=== PATIENT | female | born 1990 | race Caucasian/White ===

== ENCOUNTER 2017-07-10 16:25 | Emergency (ER) | payer OTHER ==
[2017-07-10 16:50] VITALS: BP 113/54
--- NOTE | 2017-07-10 17:07 | ER Document Report ---
ED General - General Chief Complaint: Sore Throat Stated Complaint: SORE THROAT Time Seen by Provider: 07/10/17 17:01 Mode of Arrival: Ambulatory Information source: Patient Notes: 27-year-old female presents with complaints of a sore throat URI-like symptoms for 2 weeks duration. Patient notes her symptoms are getting better but she is in fact here to be seen since that she is more concerned about her daughter who has had URI symptoms for 2 days and is having now difficulty breathing. Denies any fevers or chills denies any nausea vomiting or diarrhea TRAVEL OUTSIDE OF THE [place] IN LAST 30 DAYS: No - HPI Onset: Other Onset/Duration: Better Quality of pain: Sharp Severity: Mild Pain Level: 1 Associated symptoms: Nonproductive cough, Sore throat Exacerbated by: Denies Relieved by: Denies Similar symptoms previously: No Recently seen / treated by doctor: No - Related Data Allergies/Adverse Reactions: No Known Allergies Allergy (Unverified 07/10/17 16:34) Past Medical History - Social History Smoking Status: Never Smoker Cigarette use (# per day): No Chew tobacco use (# tins/day): No Smoking Education Provided: No Family History: Reviewed & Not Pertinent Review of Systems - Review of Systems Notes: REVIEW OF SYSTEMS: CONSTITUTIONAL : Denies fever, chills, or sweats. Denies recent illness. EENT: Admits to sore throat CARDIOVASCULAR: Denies chest pain. Denies palpitations or racing or irregular heart beat. Denies ankle edema. RESPIRATORY: Admits to cough GASTROINTESTINAL: Denies abdominal pain or distention. Denies nausea, vomiting , or diarrhea. Denies blood in vomitus, stools, or per rectum. Denies black, tarry stools. Denies constipation. GENITOURINARY: Denies difficulty urinating, painful urination, burning, frequency, blood in urine, or discharge. FEMALE GENITOURINARY: Denies vaginal bleeding, heavy or abnormal periods, irregular periods. Denies vaginal discharge or odor. MUSCULOSKELETAL: Denies back or neck pain or stiffness. Denies joint pain or swelling. SKIN: Denies rash, lesions or sores. HEMATOLOGIC : Denies easy bruising or bleeding. LYMPHATIC: Denies swollen, enlarged glands. NEUROLOGICAL: Denies confusion or altered mental status. Denies passing out or loss of consciousness. Denies dizziness or lightheadedness. Denies headache. Denies weakness or paralysis or loss of use of either side. Denies problems with gait or speech. Denies sensory loss, numbness, or tingling. Denies seizures. PSYCHIATRIC: Denies anxiety or stress. Denies depression, suicidal ideation, or homicidal ideation. ALL OTHER SYSTEMS REVIEWED AND NEGATIVE. PHYSICAL EXAMINATION: GENERAL: Well-appearing, well-nourished and in no acute distress. HEAD: Atraumatic, normocephalic. EYES: Pupils equal round and reactive to light, extraocular movements intact, conjunctiva are normal. ENT: Mild tonsillar erythema airway patent uvula midline no exudate NECK: Normal range of motion, supple without lymphadenopathy LUNGS: Breath sounds clear to auscultation bilaterally and equal. No wheezes rales or rhonchi. HEART: Regular rate and rhythm without murmurs ABDOMEN: Soft, nontender, nondistended abdomen. No guarding, no rebound. No masses appreciated. Female : deferred Musculoskeletal: Normal range of motion, no pitting or edema. No cyanosis. NEUROLOGICAL: Cranial nerves grossly intact. Normal speech, normal gait. Normal sensory, motor exams PSYCH: Normal mood, normal affect. SKIN: Warm, Dry, normal turgor, no rashes or lesions noted. Dictation was performed using [employer] voice recognition software Physical Exam - Vital signs Vitals: Temp Pulse Resp BP Pulse Ox 98.0 F 92 16 113/54 L 99 07/10/17 16:49 07/10/17 16:49 07/10/17 16:49 07/10/17 16:49 07/10/17 16:49 Course - Re-evaluation Re-evalutation: 07/10/17 20:53 Patient's presentation is most consistent with a viral syndrome, I agree with the patient that she is not of concern at this time and that her daughter who is having retractions and is only a few months old is a bigger concern patient herself is discharge and is stable does not require any further testing her daughter will be made a emergent patient and will be given further intervention immediately, patient is happy with this plan After performing a Medical Screening Examination, I estimate there is LOW risk for ACUTE CORONARY SYNDROME, PULMONARY EMBOLI, RESPIRATORY FAILURE, SEPSIS OR MENINGITIS, thus I consider the discharge disposition reasonable. I have reevaluated this patient multiple times and no significant life threatening changes are noted. The patient and I have discussed the diagnosis and risks, and we agree with discharging home with close follow-up. We also discussed returning to the Emergency Department immediately if new or worsening symptoms occur. We have discussed the symptoms which are most concerning (e.g., changing or worsening pain, trouble swallowing or breathing, neck stiffness, fever) that necessitate immediate return. - Vital Signs Vital signs: Temp Pulse Resp BP Pulse Ox 98.0 F 92 18 113/54 L 99 07/10/17 16:49 07/10/17 16:49 07/10/17 17:07 07/10/17 16:49 07/10/17 16:49 Discharge - Discharge Clinical Impression: Viral URI, Viral pharyngitis Condition: Stable Disposition: HOME, SELF-CARE Instructions: Upper Respiratory Illness ([facility]) Additional Instructions: Follow up with your physician tomorrow for further care or return to the ED IMMEDIATELY if symptoms worsen or new concerns occur. If you cannot afford to follow up with your primary care physician a list of low cost clinics have been provided at the end of your discharge papers as well.
== END 2017-07-10 17:24 | disposition home or self-care (01) ==
LOC: ER 16:25
DX: J06.9 Acute upper respiratory infection, unspecified (principal); J02.9 Acute pharyngitis, unspecified; B97.89 Other viral agents as the cause of diseases classified elsewhere; R06.9 Unspecified abnormalities of breathing; R05 Cough
CPT/HCPCS: 99282

== ENCOUNTER 2017-10-15 03:38 | Emergency (ER) | payer OTHER ==
[2017-10-15] MEDS ORDERED: CLINDAMYCIN HCL 150 MG CAPSULE PO ONE (04:09)
[2017-10-15] MEDS ORDERED: ONDANSETRON 4 MG TAB.RAPDIS PO ONE (04:09)
[2017-10-15] MEDS ORDERED: LIDOCAINE 1% INJ-PF (10 MG/ML) 30 ML SDV INJ ONE (04:24)
[2017-10-15] MEDS ORDERED: ONDANSETRON ODT 4 MG TAB (6 TAB/ER DISP) PO PRN (04:47)
--- NOTE | 2017-10-15 04:47 | ER Document Report ---
ED General - General Chief Complaint: Abscess Stated Complaint: NAUSEA, VOMITING, POST OP PAIN Time Seen by Provider: 10/15/17 03:52 Notes: Patient is a 27-year-old female who presents with complaints of what may be an abscess over her old scar. Her was performed last fall at the [facility] in [facility]. She says it has been there for approximately 2 weeks. She says because of the pain she sometimes has vomiting. No fevers. No other complaints this time. No previous history of infections over this area. TRAVEL OUTSIDE OF THE [place] IN LAST 30 DAYS: No - Related Data Allergies/Adverse Reactions: No Known Allergies Allergy (Unverified 07/10/17 16:34) Past Medical History - Social History Smoking Status: Unknown if Ever Smoked Frequency of alcohol use: None Drug Abuse: None Family History: Reviewed & Not Pertinent Patient has suicidal ideation: No Patient has homicidal ideation: No Renal/ Medical History: Denies: Hx Peritoneal Dialysis Review of Systems - Review of Systems Notes: My Normal Review Basic REVIEW OF SYSTEMS: CONSTITUTIONAL : Denies fever, chills, or sweats. Denies recent illness. GASTROINTESTINAL: Pain over section scar. GENITOURINARY: Denies difficulty urinating, painful urination, burning, frequency, or blood in urine. FEMALE GENITOURINARY: Denies vaginal bleeding, abnormal or irregular periods. NEUROLOGICAL: Denies altered mental status or loss of consciousness. Denies headache. Denies weakness or paralysis or loss of use of either side. Denies problems with gait or speech. Denies sensory or motor loss. ALL OTHER SYSTEMS REVIEWED AND NEGATIVE. Physical Exam - Vital signs Vitals: Temp Pulse Resp BP Pulse Ox 97.9 F 92 20 113/69 100 10/15/17 03:42 10/15/17 03:42 10/15/17 03:42 10/15/17 03:42 10/15/17 03:42 - Notes Notes: General Appearance: Well nourished, alert, cooperative, no acute distress, mild obvious discomfort. Well appearing. Vitals: reviewed, See vital signs table. Eyes: PERRL, EOMI, Conjuctiva clear Abdomen: Normal BS, soft, No rigidity, No abdominal tenderness, No guarding, no rebound, no abdominal masses, no organomegaly. Patient does have a approximately 3 cm area of fluctuance with local erythema over her scar. Bedside ultrasound shows that this is a fluid collection consistent with that of an abscess. Skin: warm, dry, appropriate color, no rash Neuro: speech clear, oriented x 3, normal affect, responds appropriately to questions. Course - Re-evaluation Re-evalutation: 10/15/17 05:39 Abscess was incised and drained. I then placed a Xeroform gauze over it with sterile dressing. Patient encouraged to change her dressing in 24 hours or earlier if the dressings starts to soak thru the dressing. I will place her on clindamycin. Strongly encouraged her return to ER if she has worsening spreading redness, fevers, or recurrence of fluctuance or swelling. Patient agrees with plan will be discharged home. Dictation of this chart was performed using voice recognition software; therefore, there may be some unintended grammatical errors. - Vital Signs Vital signs: Temp Pulse Resp BP Pulse Ox 98.0 F 78 17 100/62 98 10/15/17 04:56 10/15/17 04:56 10/15/17 04:56 10/15/17 04:56 10/15/17 04:56 Procedures - Incision and Drainage Lower Abdomen Type: Simple Anesthetic type: 1% Lidocaine mL's of anesthetic: 1 Blade size: 11 I&D procedure: Betadine prep applied, Sterile dressing applied Incision Method: Incision made by scalpel Amount/type of drainage: 3 mL's of purulent drainage. Discharge - Discharge Clinical Impression: Abscess Condition: Good Disposition: HOME, SELF-CARE Additional Instructions: ABSCESS: You have an abscess (boil). This a pus-forming infection, usually due to staph. Some boils may be left to drain on their own, but most require lancing. From the time the tender lump first appears, it may be three or four days before the abscess is ready to edelmira. Local heat and rest help at this stage of treatment. An antibiotic may prevent spread of the infection. Once the abscess is opened, packing may be placed into it. This is done so pus is not sealed inside by premature closure of the cavity. The packing will be removed at your follow-up visit or you may be advised to remove it yourself at home. Sometimes this packing must be replaced a few times during healing. The wound will heal with surprisingly little scar. Depending on the size and location of an abscess, healing can take one to four weeks. You may shower and wash the area around the incision site two or three times a day. Antibiotics may be prescribed, but are usually not necessary after an abscess has been drained. If you develop fever, chills, worsening pain, or increasing swelling in the area, call the doctor or return immediately. POST INCISION AND DRAINAGE: You have had an incision made to allow drainage of an abscess. The incision must remain open so that pus and debris can drain from the wound. If the abscess cavity is large, packing is placed. This keeps the tissues from collapsing and trapping pus inside, while the body shrinks the cavity. The packing may need to be replaced every day or two. The physician will instruct you on the packing. Keep a bulky dressing over the area. Replace it if it becomes saturated with blood or pus. Do not disturb the packing (if present). You may shower and cleanse the area with gentle soap and warm water two or three times a day. Local warmth may be soothing, and may promote faster healing. Return if you develop high fever or chills, or if you note spreading redness, increasing swelling, or increasing tenderness. FOLLOW-UP CARE: Most simple abscesses will not require a follow up visit. If you had packing placed in the abscess, remove it as instructed by the physician. If you have been referred to a physician for follow-up care, call the physicians office for an appointment as you were instructed or within the next two days. If you experience worsening or a significant change in your symptoms, return to the Emergency Department at any time for re-evaluation. Please change the dressing every 24 hours after washing with soap and water. Change the dressing more frequently if the dressing becomes saturated. Return to the ER immediately if you have fevers, spreading redness, or increasing swelling. Prescriptions: Clindamycin HCl 300 mg PO ASDIR #56 capsule Referrals: JAY BO JR, MD [Primary Care Provider] - Follow up in 3-5 days
[2017-10-15 04:58] VITALS: BP 100/62
== END 2017-10-15 04:58 | disposition home or self-care (01) ==
LOC: ER 03:38
PROC: 0H97XZZ Drainage of Abdomen Skin, External Approach (ICD-10-PCS; principal; 2017-10-15)
DX: L02.211 Cutaneous abscess of abdominal wall (principal); Z98.890 Other specified postprocedural states
CPT/HCPCS: 99283; 10060; S0119

== ENCOUNTER 2018-05-14 23:37 | Emergency (ER) | payer OTHER ==
[2018-05-15 02:57] LABS: APPEARANCE,URINE SLIGHTLY-CLOUDY; BILIRUBIN,URINE NEGATIVE (NEGATIVE); COLOR,URINE YELLOW; GLUCOSE, URINE NEGATIVE (NEGATIVE); KETONES,URINE 20 mg/dL (NEGATIVE); LEUKOCYTE ESTERASE,URINE NEGATIVE (NEGATIVE); NITRITE,URINE NEGATIVE (NEGATIVE); PROTEIN,URINE NEGATIVE (NEGATIVE); URINE SPECIFIC GRAVITY 1.008; UROBILINOGEN,URINE NEGATIVE mg/dL (<2.0)
--- NOTE | 2018-05-15 04:12 | ER Document Report ---
ED GI/ - General Chief Complaint: Abdominal Pain Stated Complaint: ABDOMINAL PAIN,VOMITING Time Seen by Provider: 05/15/18 03:46 Primary Care Provider: SUZIE SORIA MD [Primary Care Provider] - Follow up as needed Notes: Patient is an otherwise healthy 28-year-old female who presents with left lower quadrant pain with nausea and vomiting. She reports that she has a history of ovarian cysts and states that this pain felt similar. Patient denies any fevers or chills. Patient denies any diarrhea. She reports last menstrual period was on April 27 and was normal. She reports last bowel movement was yesterday. TRAVEL OUTSIDE OF THE [place] IN LAST 30 DAYS: No - Related Data Allergies/Adverse Reactions: No Known Allergies Allergy (Unverified 07/10/17 16:34) Past Medical History - General Information source: Patient - Social History Smoking Status: Current Every Day Smoker Family History: Reviewed & Not Pertinent Patient has suicidal ideation: No Patient has homicidal ideation: No Renal/ Medical History: Reports: Hx Ovarian Cysts. Denies: Hx Peritoneal Dialysis Past Surgical History: Reports: Hx Section - x1 Review of Systems - Review of Systems Constitutional: No symptoms reported EENT: No symptoms reported Cardiovascular: No symptoms reported Respiratory: No symptoms reported Gastrointestinal: Abdominal pain - Left lower quadrant now resolved, Nausea, Vomiting Genitourinary: No symptoms reported Female Genitourinary: No symptoms reported Musculoskeletal: No symptoms reported Skin: No symptoms reported Hematologic/Lymphatic: No symptoms reported Neurological/Psychological: No symptoms reported Physical Exam - Vital signs Vitals: Temp Pulse Resp BP Pulse Ox 98.4 F 94 18 114/71 99 05/15/18 00:09 05/15/18 00:09 05/15/18 00:09 05/15/18 00:09 05/15/18 00:09 - Notes Notes: PHYSICAL EXAMINATION: GENERAL: Well-appearing, well-nourished and in no acute distress. HEAD: Atraumatic, normocephalic. EYES: Pupils equal round and reactive to light, extraocular movements intact, conjunctiva are normal. ENT: Nares patent, oropharynx clear without exudates. Moist mucous membranes. NECK: Normal range of motion, supple without lymphadenopathy LUNGS: Breath sounds clear to auscultation bilaterally and equal. No wheezes r ales or rhonchi. HEART: Regular rate and rhythm without murmurs ABDOMEN: Soft, nontender, nondistended abdomen. No guarding, no rebound. No masses appreciated. Female : No CVA tenderness. Musculoskeletal: Normal range of motion, no pitting or edema. No cyanosis. NEUROLOGICAL: Cranial nerves grossly intact. Normal speech, normal gait. Normal sensory, motor exams PSYCH: Normal mood, normal affect. SKIN: Warm, Dry, normal turgor, no rashes or lesions noted. Course - Re-evaluation Re-evalutation: Small amount of hematuria noted in urinalysis, otherwise appears to be uninfected. At the time of my initial evaluation, patient is pain-free and is requesting to be discharged home. Her physical examination is unremarkable and her abdomen is soft, nontender nondistended. We discussed multiple different causes of left lower quadrant pain to include ovarian cysts which she has had in the past as well as constipation. Patient declines any further workup at this time and states she is feeling much better. I did offer the patient a prescription for Zofran which she also declined stating that she has plenty of Zofran at home. Patient was given ED return precautions and she verbalizes understanding of same. - Vital Signs Vital signs: Temp Pulse Resp BP Pulse Ox 97.8 F 85 18 110/72 99 05/15/18 04:22 05/15/18 04:22 05/15/18 04:22 05/15/18 04:22 05/15/18 04:22 - Laboratory Laboratory results interpreted by me: 05/15/18 02:36 Urine Ketones 20 H Urine Blood SMALL H Discharge - Discharge Clinical Impression: Abdominal pain Qualifiers: Abdominal location: left lower quadrant Qualified Code(s): R10.32 - Left lower quadrant pain Nausea and vomiting Qualifiers: Vomiting type: unspecified Vomiting Intractability: non-intractable Qualified Code(s): R11.2 - Nausea with vomiting, unspecified Condition: Stable Disposition: HOME, SELF-CARE Additional Instructions: Your urinalysis done today was normal and does not show any signs of infection. You have opted to not stay for any further workup to include blood work or ultrasound. You declined the need for any Zofran. Please return to the emergency department should you experience abdominal pain again that is accompanied by persistent vomiting, fever or any other symptom that is concerning to you. We will be happy to reevaluate you at any time. Forms: Return to Work Referrals: SUZIE SORIA MD [Primary Care Provider] - Follow up as needed
[2018-05-15 04:23] VITALS: BP 110/72
== END 2018-05-15 04:20 | disposition home or self-care (01) ==
LOC: ER 23:37
DX: R10.32 Left lower quadrant pain (principal); R11.2 Nausea with vomiting, unspecified; F17.200 Nicotine dependence, unspecified, uncomplicated
CPT/HCPCS: 81001; 99284

== ENCOUNTER 2018-10-18 19:35 | Emergency (ER) | payer OTHER ==
--- NOTE | 2018-10-18 21:58 | ER Document Report ---
ED Medical Screen (RME) - General Chief Complaint: Dog Bite Stated Complaint: DOG BITE RIGHT HAND Time Seen by Provider: 10/18/18 21:52 Primary Care Provider: SUZIE SORIA MD [Primary Care Provider] - Follow up as needed TRAVEL OUTSIDE OF THE [place] IN LAST 30 DAYS: No - HPI Notes: 10/18/18 21:56 28-year-old female to the emergency department with complaints of a dog bite to her right hand that occurred just prior to arrival. States she is walking her dog when the dog got in a fight with another dog. She tried to break up the fight in her hand was bitten. Believes that her last tetanus was in 2016. She states that the belt back operator of the other dog did not know anything about the dogs shot records. It is right-handed. There is a laceration to the back of the right hand which will require repair. I have greeted and performed a rapid initial assessment of this patient. A comprehensive ED assessment and evaluation of the patient, analysis of test results and completion of medical decision making process will be conducted by an additional ED providers. Dictation of this chart was performed using voice recognition software; therefore, there may be some unintended grammatical errors. - Related Data Allergies/Adverse Reactions: No Known Allergies Allergy (Verified 10/18/18 19:43) Past Medical History Renal/ Medical History: Reports: Hx Ovarian Cysts. Denies: Hx Peritoneal Dialysis Past Surgical History: Reports: Hx Section - x1 Physical Exam - Vital signs Vitals: Temp Pulse Resp BP Pulse Ox 98.0 F 93 18 128/75 H 100 10/18/18 19:45 10/18/18 19:45 10/18/18 19:45 10/18/18 19:45 10/18/18 19:45 Course - Vital Signs Vital signs: Temp Pulse Resp BP Pulse Ox 98.0 F 93 18 128/75 H 100 10/18/18 19:45 10/18/18 19:45 10/18/18 19:45 10/18/18 19:45 10/18/18 19:45 Doctor's Discharge - Discharge Referrals: SUZIE SORIA MD [Primary Care Provider] - Follow up as needed
[2018-10-18] MEDS ORDERED: IBUPROFEN 600 MG TABLET PO ONE ×2 (21:59→23:39)
--- NOTE | 2018-10-18 22:24 | RADIOLOGY REPORT (SQ) ---
EXAM DESCRIPTION: XR HAND 3 OR MORE VIEWS October 18, 2018 at 9:50 PM local time CLINICAL HISTORY: dog bite COMPARISON: None FINDINGS: Three x-ray views of the right hand were submitted. There is no acute fracture or dislocation. Bone mineralization is within normal limits. Linear lucency within the soft tissues medial to the fifth metacarpal phalangeal joint compatible with the recent injury. There is no radiopaque foreign body material. IMPRESSION: No acute fracture or dislocation. Linear lucency within the soft tissues medial to the fifth metacarpal phalangeal joint compatible with the recent injury/air.
[2018-10-18] MEDS ORDERED: AMOXICILLIN TR/POT CLAVULANATE 500-125 MG TAB PO ONE (23:38)
[2018-10-18] MEDS ORDERED: RABIES VACCINE (PCEC)/PF 2.5 UNIT/1 ML KIT IM ONE (23:54)
[2018-10-18] MEDS ORDERED: BACITRACIN ZINC OINTMENT 15 GM TP ONE (23:54)
[2018-10-18] MEDS ORDERED: RABIES IMMUNE GLOBULIN INJ/PF 300 UNIT/2 ML SDV IM ONE (23:57)
--- NOTE | 2018-10-19 00:19 | ER Document Report ---
ED General - General Chief Complaint: Dog Bite Stated Complaint: DOG BITE RIGHT HAND Time Seen by Provider: 10/18/18 21:52 Primary Care Provider: SUZIE SORIA MD [NO LOCAL MD] - Follow up as needed Mode of Arrival: Ambulatory Information source: Patient TRAVEL OUTSIDE OF THE [place] IN LAST 30 DAYS: No - HPI Notes: Patient is a 28-year-old female presents to the emergency department with report that she was trying to break up a fight between her dog and another dog that was attacking her dog and in the process sustained puncture wounds to the right hand. The patient denies any other injury. She reports no numbness, paresthesia, fever, chills, difficulty breathing. She states she has never seen the other dog previously, and she does not know where the dog may have come from. The patient denies any other injury. She states her tetanus is up-to-date from 2016. Past medical history ovarian cysts. - Related Data Allergies/Adverse Reactions: No Known Allergies Allergy (Verified 10/18/18 19:43) Past Medical History - General Information source: Patient - Social History Smoking Status: Never Smoker Chew tobacco use (# tins/day): No Frequency of alcohol use: None Drug Abuse: None Lives with: Alone Family History: Reviewed & Not Pertinent Patient has suicidal ideation: No Patient has homicidal ideation: No Renal/ Medical History: Reports: Hx Ovarian Cysts. Denies: Hx Peritoneal Dialysis Past Surgical History: Reports: Hx Section - x1 Review of Systems - Review of Systems -: Yes All other systems reviewed and negative Physical Exam - Vital signs Vitals: Temp Pulse Resp BP Pulse Ox 98.0 F 93 18 128/75 H 100 10/18/18 19:45 10/18/18 19:45 10/18/18 19:45 10/18/18 19:45 10/18/18 19:45 - Notes Notes: In general -no obvious distress. Interactive and alert. HEENT atraumatic normocephalic. Neck supple nontender. Examination right upper extremity shows puncture wound 3 mm to the dorsal aspect of the proximal fifth finger and another 7 mm dorsal puncture wound in the webspace between the fourth and fifth fingers. No bony deformity or crepitance. No exposed tendon or nerve or bone or muscle. Patient has good range of motion in flexion and extension distal to the wound. There is no proximal erythema or adenopathy. Course - Re-evaluation Re-evalutation: 10/19/18 00:14 Wound area was cleaned and antibiotic ointment was applied. The wound will not be sutured due to risk of abscess formation with animal bite. There is no evidence for tendon injury or nerve injury with good distal sensation and capillary refill and range of motion. Patient was given rabies vaccination with rabies immunoglobulin. - Vital Signs Vital signs: Temp Pulse Resp BP Pulse Ox 98.0 F 93 18 128/75 H 100 10/18/18 19:45 10/18/18 19:45 10/18/18 19:45 10/18/18 19:45 10/18/18 19:45 Discharge - Discharge Clinical Impression: Dog bite Qualifiers: Encounter type: initial encounter Qualified Code(s): W54.0XXA - Bitten by dog, initial encounter Condition: Stable Disposition: HOME, SELF-CARE Instructions: Animal Bites ([facility]) Additional Instructions: Follow-up with animal control related to the dog bite. Animal control will help find the dog that bit you. If animal control puts the dog into custody, then you may not need the remainder of the vaccination schedule. Keep the wound clean and dry. Apply antibiotic ointment to the wound. Return to the emergency department in case of fever, red streaks or severe swelling. Return to the emergency department for repeat rabies vaccination in 3 days, 7 days, 14 days, and 28 days. Prescriptions: Ibuprofen [Motrin 600 mg Tablet] 600 mg PO Q8HP PRN #30 tablet PRN Reason: Amox Tr/Potassium Clavulanate [Augmentin 875-125 Tablet] 1 tab PO BID 10 Days tablet Forms: Return to Work Referrals: SUZIE SORIA MD [NO LOCAL MD] - Follow up as needed
[2018-10-19] MEDS ORDERED: RABIES VACCINE (PCEC)/PF 2.5 UNIT/1 ML KIT IM ONE (01:00)
[2018-10-19 02:07] VITALS: BP 122/78
== END 2018-10-19 01:40 | disposition home or self-care (01) ==
LOC: ER 19:35
DX: S61.451A Open bite of right hand, initial encounter (principal); S61.256A Open bite of right little finger without damage to nail, initial encounter; W54.0XXA Bitten by dog, initial encounter; Y93.89 Activity, other specified; Z23 Encounter for immunization; Z20.3 Contact with and (suspected) exposure to rabies
CPT/HCPCS: 90376; 90471; 90675; 96372; 99283; J3490

== ENCOUNTER → 2019-10-06 | Outpatient (CLI) | payer MEDICAID ==
--- NOTE | 2019-10-06 12:45 | RADIOLOGY REPORT (SQ) ---
EXAM DESCRIPTION: C SP 4 OR 5 VIEWS IMAGES COMPLETED DATE/TIME: 10/06/2019 10:26 am REASON FOR STUDY: CERVICALGIA M54.9 DORSALGIA, UNSPECIFIED M54.2 CERVICALGIA COMPARISON: None. NUMBER OF VIEWS: Five views. TECHNIQUE: AP, lateral, obliques and odontoid radiographic images acquired of the cervical spine. LIMITATIONS: None. FINDINGS: MINERALIZATION: Normal. ALIGNMENT: Anatomic. VERTEBRAE: Vertebral bodies of normal height. DISCS: No significant osteophytes or sclerosis. Disc height maintained. FORAMINA: No osteophytes or foraminal narrowing. LATERAL AND POSTERIOR ELEMENTS: Facets, lateral masses and spinous processes without significant find ings. HARDWARE: None in the spine. SOFT TISSUES: No masses or calcifications. Lung apices clear. OTHER: No other significant finding. IMPRESSION: NO SIGNIFICANT RADIOGRAPHIC FINDING IN THE CERVICAL SPINE. TECHNICAL DOCUMENTATION: JOB ID: [id number] 2010 [employer]- All Rights Reserved Reading location - IP/workstation name: [email or web address]
--- NOTE | 2019-10-06 12:46 | RADIOLOGY REPORT (SQ) ---
EXAM DESCRIPTION: T SPINE AP/LAT IMAGES COMPLETED DATE/TIME: 10/06/2019 10:26 am REASON FOR STUDY: DORSALGIA, UNSPECIFIED M54.9 DORSALGIA, UNSPECIFIED M54.2 CERVICALGIA COMPARISON: None. NUMBER OF VIEWS: Two views. TECHNIQUE: AP and lateral radiographic images acquired of the thoracic spine. LIMITATIONS: None. FINDINGS: MINERALIZATION: Normal. ALIGNMENT: Normal. No scoliosis. VERTEBRAE: No fracture or bone lesion. Maintained height, normal segmentation. DISCS: No significant loss of height or significant narrowing. No large osteophytes. HARDWARE: None in the spine. MEDIASTINUM AND SOFT TISSUES: Normal heart size and aortic contour. No soft tissue abnormality. VISUALIZED LUNG BENITEZ: Clear. OTHER: No other significant finding. IMPRESSION: NO SIGNIFICANT RADIOGRAPHIC FINDING IN THE THORACIC SPINE. TECHNICAL DOCUMENTATION: JOB ID: [id number] 2010 [employer]- All Rights Reserved Reading location - IP/workstation name: [email or web address]
== END ==
LOC: RAD 10:03
PROVIDERS: ATTEND Nurse Practitioner Family
DX: M54.6 Pain in thoracic spine (principal); M54.2 Cervicalgia
CPT/HCPCS: 72050; 72070

== ENCOUNTER → 2019-12-15 | Outpatient (CLI) | payer MEDICAID ==
[2019-12-15 16:44] LABS: BACTERIA (WET MOUNT) 4+ BACTERIA SEEN; EPITHELIALS (WET MOUNT) 4+ EPITHELIALS SEEN; T.VAGINALIS (WET MOUNT) NO TRICHOMONAS SEEN; WBCS (WET MOUNT) 2+ WBCS SEEN; YEAST (WET MOUNT) NO YEAST SEEN
[2019-12-15 18:15] LABS: CHLAM PCR DETECTED (NOT DETECT)
== END ==
LOC: OD 16:31
PROVIDERS: ATTEND Nurse Practitioner Acute Care
DX: Z20.828 Contact with and (suspected) exposure to other viral communicable diseases (principal); R30.0 Dysuria
CPT/HCPCS: 36415; 87210; 87491; 87529; 87591

== ENCOUNTER → 2020-02-09 | Outpatient (CLI) | payer MEDICAID ==
--- NOTE | 2020-02-09 13:22 | EKG REPORT ---
SEVERITY:- NORMAL ECG - SINUS RHYTHM : Confirmed by: Nhan Santos MD 09-Feb-2020 13:20:49
== END ==
LOC: OD 11:37
PROVIDERS: ATTEND Nurse Practitioner Family
DX: R00.2 Palpitations (principal)
CPT/HCPCS: 93005; 93010

== ENCOUNTER → 2020-05-04 | Outpatient (CLI) | payer MEDICAID ==
[~2020-05-04] MED LIST: COVID-19 VACCINE (PFIZER)/PF 30 MCG/0.3 ML VIAL IM ONE; EPINEPHRINE INJ/PF 1 MG/1 ML AMPULE IM PRN
== END ==
LOC: EMPHEALTH 16:12
PROVIDERS: ATTEND Internal Medicine
DX: Z23 Encounter for immunization (principal)
CPT/HCPCS: 91300